=== PATIENT | male | born 1965 | race African-American/Black ===

== ENCOUNTER 2021-05-11 07:18 | Emergency (ER) | payer MEDICAID ==
[~2021-05-11] VITALS: Ht 180.3 cm; Wt 86.0 kg
[2021-05-11] MEDS ORDERED: ONDANSETRON HCL 4MG/2ML INJ IV ONE (08:00)
[2021-05-11 08:26] LABS: CHLORIDE 107 mEq/L (98-107)
[2021-05-11 08:33] LABS: BASOPHILS % 0.2 % (0.0-2.0); EOSINOPHILS % 1.9 % (0.0-5.0); HEMATOCRIT. 42.7 % (42.0-52.0); HEMOGLOBIN. 14.7 g/dL (14.0-18.0); LYMPHOCYTES % 22.1 % (20.0-50.0); MEAN CORPUSCULAR HEMOGLOBIN 30.7 pg (28.0-32.0); MEAN CORPUSCULAR VOLUME 89.2 fL (80.0-94.0); MEAN PLATELET VOLUME 8.1 fl (7.4-10.4); MONOCYTES % 11.1 % (2.0-8.0); NEUTROPHILS % 64.7 % (40.0-76.0); PLATELET 200 x1000/uL (130-400); RED BLOOD CELL COUNT 4.79 mill/uL (4.7-6.1); RED CELL DISTRIBUTION WIDTH 14.6 % (11.6-14.6)
[2021-05-11 09:30] VITALS: BP 153/99
== END 2021-05-11 09:36 | disposition home or self-care (01) ==
LOC: ER 07:48
DX: R00.2 Palpitations (principal); F17.210 Nicotine dependence, cigarettes, uncomplicated; I10 Essential (primary) hypertension; E87.6 Hypokalemia; Z71.6 Tobacco abuse counseling
CPT/HCPCS: 36415; 71045; 80053; 84484; 85025; 93005; 96374; 99285; 99406; J2405

== ENCOUNTER 2021-05-27 15:20 | Emergency (ER) | payer MEDICAID, OTHER ==
[~2021-05-27] VITALS: Ht 177.8 cm; Wt 86.0 kg
[2021-05-27] MEDS ORDERED: ACETAMINOPHEN 325MG TABLET PO STA (16:38)
[2021-05-27] MEDS ORDERED: SODIUM CHLORIDE 0.9% 1000ML BAG (SEPSIS BOLUS) IV ONE (16:45)
[2021-05-27] MEDS ORDERED: KETOROLAC 15MG/ML VIAL IV ONE (16:45)
[2021-05-27 17:20] VITALS: BP 145/92
[2021-05-27 17:53] LABS: BASOPHILS % 0.2 % (0.0-2.0); EOSINOPHILS % 0.2 % (0.0-5.0); HEMATOCRIT. 39.9 % (42.0-52.0); HEMOGLOBIN. 13.9 g/dL (14.0-18.0); LYMPHOCYTES % 35.3 % (20.0-50.0); MEAN CORPUSCULAR HEMOGLOBIN 31.2 pg (28.0-32.0); MEAN CORPUSCULAR VOLUME 89.3 fL (80.0-94.0); MEAN PLATELET VOLUME 7.9 fl (7.4-10.4); MONOCYTES % 12.5 % (2.0-8.0); NEUTROPHILS % 51.8 % (40.0-76.0); PLATELET 202 x1000/uL (130-400); RED BLOOD CELL COUNT 4.47 mill/uL (4.7-6.1); RED CELL DISTRIBUTION WIDTH 13.6 % (11.6-14.6)
[2021-05-27 17:57] LABS: CHLORIDE 97 mEq/L (98-107)
== END 2021-05-27 18:42 | disposition home or self-care (01) ==
LOC: ER 15:40
DX: J11.1 Influenza due to unidentified influenza virus with other respiratory manifestations (principal); I10 Essential (primary) hypertension; F15.10 Other stimulant abuse, uncomplicated; Z20.822 Contact with and (suspected) exposure to COVID-19
CPT/HCPCS: 36415; 71045; 80053; 83605; 85025; 87040; 87804; 96361; 96374; 99284; C9803; J1885; J7030; J7040; U0003; U0005; Z7610

== ENCOUNTER 2025-04-11 12:49 | Emergency (ER) | payer MEDICAID, OTHER ==
[~2025-04-11] VITALS: Ht 172.7 cm; Wt 90.0 kg
[2025-04-11 12:51] VITALS: O2SAT 98
[2025-04-11 15:16] LABS: BASOPHILS % 0.4 % (0.0-2.0); EOSINOPHILS % 2.8 % (0.0-5.0); HEMATOCRIT. 41.3 % (42.0-52.0); HEMOGLOBIN. 13.8 g/dL (14.0-18.0); LYMPHOCYTES % 30.1 % (20.0-50.0); MEAN PLATELET VOLUME 8.0 fl (7.4-10.4); MONOCYTES % 11.0 % (2.0-8.0); NEUTROPHILS % 55.7 % (40.0-76.0); PLATELET 152 x1000/uL (130-400); RED BLOOD CELL COUNT 4.30 mill/uL (4.7-6.1); RED CELL DISTRIBUTION WIDTH 12.9 % (11.6-14.6)
[2025-04-11 15:25] LABS: CREATININE 1.3 mg/dL (0.6-1.3)
[2025-04-11 15:26] LABS: ETHANOL BLOOD < 10 mg/dL (<10); UREA NITROGEN BLOOD 16 mg/dL (9-23)
[2025-04-11] MEDS ORDERED: NALO4SPR BOTHNSTRLS (15:50)
[2025-04-11 16:11] VITALS: BP 170/80; PULSE 52; RESP 11; TEMP 36.9; O2SAT 98
== END 2025-04-11 16:59 | disposition home or self-care (01) ==
LOC: ER 12:49
DX: F15.10 Other stimulant abuse, uncomplicated (principal); I10 Essential (primary) hypertension; R41.82 Altered mental status, unspecified; F10.90 Alcohol use, unspecified, uncomplicated; Z87.891 Personal history of nicotine dependence; Z79.899 Other long term (current) drug therapy; Y90.9 Presence of alcohol in blood, level not specified
CPT/HCPCS: 80048; 80320; 85025; 36415; 70450; 93005; 99284; Z7610 ×2; A4606; G0480